=== PATIENT | male | born 1980 | race Caucasian/White ===

== ENCOUNTER 2018-04-10 14:59 | Emergency (ER) | payer SELFPAY ==
[2018-04-10 15:22] VITALS: BP 127/92
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
--- NOTE | 2018-04-10 16:19 | RAD ---
INDICATION: Back pain thoracic and lumbar region. COMPARISON: There are no prior studies available for comparison. TECHNIQUE: Contiguous axial sections were obtained beginning above the T12 vertebra and continuing through the L5-S1 disc space. Images were reconstructed in the sagittal and coronal planes. FINDINGS: The vertebra are in normal alignment. No fracture is seen. At the L1-L2 level there is a mild broad-based disc bulge. No spinal canal or neural foraminal narrowing is seen. At the L2-L3 level there is a minimal broad-based disc bulge. No spinal canal or neural foraminal narrowing is seen. At the L3-L4 level there is a mild broad-based disc bulge and mild hypertrophic changes within the facet joints. There is mild spinal canal narrowing and mild bilateral neural foraminal narrowing. At the L4-L5 level there is a mild broad-based disc bulge. There is mild spinal canal narrowing and mild bilateral neural foraminal narrowing. At the L5-S1 level there is a mild broad-based disc bulge and mild hypertrophic changes within the facet joints. No significant spinal canal narrowing is present. There is mild bilateral neural foraminal narrowing. IMPRESSION: 1. NO EVIDENCE OF FRACTURE. 2. MILD DEGENERATIVE DISC DISEASE.
--- NOTE | 2018-04-10 16:26 | RAD ---
INDICATION: Low thoracic upper lumbar spine pain. COMPARISON: There are no prior studies available for comparison. TECHNIQUE: Contiguous axial sections were obtained beginning above the C7 vertebra and scanning through the T12 vertebra. Images were reconstructed in the sagittal and coronal planes. FINDINGS: There is a mild dorsal scoliosis convex toward the left side. There is no evidence for acute fracture. There is mild anterior wedging and multiple Schmorl's nodes present in the mid and lower dorsal spine most consistent with Scheuermann's disease. At the T7-T8 level there appears to be a small to moderate size left posterior lateral disc protrusion which is not well-defined on this study. No other significant disc space abnormalities are appreciated. IMPRESSION: 1. FINDINGS CONSISTENT WITH SCHEUERMANN'S DISEASE. 2. SMALL TO MODERATE SIZE LEFT POSTERIOR LATERAL DISC PROTRUSION AT THE T7-T8 LEVEL. THIS CAN BE FURTHER DEFINED WITH A NONEMERGENT MRI OF THE DORSAL SPINE CLINICALLY NEEDED.
[2018-04-10] MEDS ORDERED: HYDROcodone/ACETAMIN 5-325 MG* 1 TAB PO ONE (16:51)
== END 2018-04-10 17:00 | disposition home or self-care (01) ==
LOC: UCEAST 14:59
DX: M54.6 Pain in thoracic spine (principal); M54.5 Low back pain; G89.29 Other chronic pain
CPT/HCPCS: 72128; 72131; 99202; G0463